=== PATIENT | female | born 1985 | race Caucasian/White ===

== ENCOUNTER 2020-09-29 19:24 | Emergency (ER) | payer SELFPAY ==
[~2020-09-29] VITALS: Ht 177.8 cm; Wt 187.7 kg
[2020-09-29 19:29] VITALS: TEMP 97.6
[2020-09-29 21:06] LABS: BASO % 0.2 % (0.0-2.0); EOS # 0.1 (0.0-0.7); EOS % 1.3 % (0-4.0); GRAN # 3.3 (1.4-6.5); GRAN % 54.3 % (42.2-75.2); HEMOGLOBIN 11.4 g/dl (12.5-16.0); LYMPH # 2.1 (1.2-3.4); LYMPH % 33.3 % (20.0-51.0); MEAN CELL VOLUME 92 fl (80.0-100.0); MEAN CORPUSCULAR HEMOGLOBIN 29 pg (27.0-31.0); MEAN CORPUSCULAR HGB CONC 31 g/dl (33.0-37.0); MEAN PLATELET VOLUME 9.4 fl (7.4-10.4); MONO # 0.7 (0.1-0.6); MONO % 10.7 % (1.7-9.3); PLATELET COUNT 317 K/mm3 (130-400); RED BLOOD COUNT 3.95 M/mm3 (4.10-5.30); REDCELL DISTRIBUTION WIDTH-CV 13.2 % (11.5-14.5)
[2020-09-29 21:08] LABS: HEMATOCRIT 36.5 % (37.0-47.0)
[2020-09-29 21:18] LABS: ALBUMIN 3.8 gm/dL (3.5-5.0); BILIRUBIN,TOTAL 0.6 mg/dL (0.0-1.0); C-REACTIVE PROTEIN 1.4 mg/dL (0.0-0.9); CALCIUM 9.2 mg/dL (8.4-10.2); CREATININE, serum 0.6 (0.52-1.25); POTASSIUM 4.3 mmol/L (3.4-5.0); TOTAL PROTEIN 7.6 gm/dL (6.4-8.2)
[2020-09-29 21:40] VITALS: BP 109/75; PULSE 81
== END 2020-09-29 21:49 | disposition home or self-care (01) ==
LOC: COL.ER 19:24
PROVIDERS: Nurse Practitioner
DX: R10.12 Left upper quadrant pain (principal); Z90.49 Acquired absence of other specified parts of digestive tract; Z98.84 Bariatric surgery status; Z32.02 Encounter for pregnancy test, result negative; Z88.1 Allergy status to other antibiotic agents; Z88.6 Allergy status to analgesic agent
CPT/HCPCS: J2270

== ENCOUNTER 2020-10-09 07:00 | Day surgery (SDC) | payer SELFPAY ==
[2020-10-09] VITALS (9 sets, daily range): BP systolic 104–119; BP diastolic 48–89; PULSE 55–86; TEMP 97.8–98
[~2020-10-09] VITALS: Ht 177.8 cm; Wt 184.6 kg
--- NOTE | 2020-10-09 10:04 | NUR ---
Pt to GI bay 3 via cart from ENDO. Pt awake and alert. Remained on cart as she will need to go to CT for scan. Pt C/O pain to right lower quadrant. Pt rates pain 8/10. Will keep pt NPO for scan. in room. Call light within reach.
--- NOTE | 2020-10-09 10:10 | NUR ---
Pt to CT scan via cart accompanied by this nurse.
--- NOTE | 2020-10-09 10:20 | NUR ---
Pt back from CT scan. Pt up to restroom with stand by assistance. Pt voids without difficulties. Pt back to room. Pt continues to rest. Rates pain 7/10. Will continue to monitor. Call light within reach.
--- NOTE | 2020-10-09 10:35 | NUR ---
Pt continues to rest. Denies needs. Call light within reach.
--- NOTE | 2020-10-09 10:50 | NUR ---
Pt states "no change" in pain. Pt rates pain 01/19. Pt calm and visits with her . Pt assisted up to restroom with stand by assistance. Pt voids without difficulties. Pt back to room. Pt made comfortable on cart. Call light within reach.
--- NOTE | 2020-10-09 11:15 | NUR ---
into see pt. Orders for Fentanyl for pain given.
--- NOTE | 2020-10-09 11:30 | NUR ---
Fentanyl 50mg IVSP given for pain per orders. Pt continues to rest. Talkative and visiting with . Call light within reach.
--- NOTE | 2020-10-09 12:00 | NUR ---
Pt reports "no change" in pain to RLQ. Pt rates pain 11/19. Pt states "I only feel a little groggy." Pt asking when she can go home. No report recieved from CT scan yet. Will continue to monitor. Call light within reach.
--- NOTE | 2020-10-09 13:00 | NUR ---
Pt continues to rest. Reports "no change" in pain. Pain continues at 6-8/10 to RLQ. Denies needs at this time. Call light within reach.
--- NOTE | 2020-10-09 13:45 | NUR ---
into speak with pt at this time.
--- NOTE | 2020-10-09 14:00 | NUR ---
Fentanyl 50mcg IVSP given. Discharge instructions reviewed. Pt voices understanding. IV site discontinued with all parts intact. Pt up to dress. Call light within reach.
--- NOTE | 2020-10-09 14:10 | NUR ---
Pt escorted to private car via wheel chair. Pt accompanied home by her boyfriend.
== END 2020-10-09 14:10 | disposition home or self-care (01) ==
LOC: SDCO 07:00
DX: K21.00 Gastro-esophageal reflux disease with esophagitis, without bleeding (principal); K62.89 Other specified diseases of anus and rectum; K29.70 Gastritis, unspecified, without bleeding; K92.0 Hematemesis; R93.3 Abnormal findings on diagnostic imaging of other parts of digestive tract; R79.82 Elevated C-reactive protein (CRP); E66.9 Obesity, unspecified; K59.00 Constipation, unspecified; Z98.84 Bariatric surgery status; Z88.1 Allergy status to other antibiotic agents; Z88.6 Allergy status to analgesic agent; Z90.49 Acquired absence of other specified parts of digestive tract; Z87.891 Personal history of nicotine dependence
CPT/HCPCS: J2405; J2704; J3010; J7120; Q9967

== ENCOUNTER 2020-11-14 19:29 | Emergency (ER) | payer MEDICAID ==
[~2020-11-14] VITALS: Ht 177.8 cm; Wt 184.5 kg
[2020-11-14 20:34] VITALS: TEMP 97.9
[2020-11-14 21:09] LABS: BASO % 0.1 % (0.0-2.0); EOS # 0.1 (0.0-0.7); EOS % 1.2 % (0-4.0); GRAN # 4.3 (1.4-6.5); GRAN % 55.6 % (42.2-75.2); HEMOGLOBIN 11.5 g/dl (12.5-16.0); LYMPH # 2.5 (1.2-3.4); LYMPH % 32.1 % (20.0-51.0); MEAN CELL VOLUME 94 fl (80.0-100.0); MEAN CORPUSCULAR HEMOGLOBIN 29 pg (27.0-31.0); MEAN CORPUSCULAR HGB CONC 31 g/dl (33.0-37.0); MEAN PLATELET VOLUME 10.1 fl (7.4-10.4); MONO # 0.8 (0.1-0.6); MONO % 10.6 % (1.7-9.3); PLATELET COUNT 268 K/mm3 (130-400); RED BLOOD COUNT 3.92 M/mm3 (4.10-5.30); REDCELL DISTRIBUTION WIDTH-CV 13.9 % (11.5-14.5)
[2020-11-14 21:11] LABS: HEMATOCRIT 36.7 % (37.0-47.0)
[2020-11-14 21:23] LABS: BILIRUBIN,TOTAL 0.9 mg/dL (0.0-1.0); CALCIUM 9.5 mg/dL (8.4-10.2); CREATININE, serum 0.73 (0.52-1.25); POTASSIUM 4.2 mmol/L (3.4-5.0); TOTAL PROTEIN 7.7 gm/dL (6.4-8.2)
[2020-11-14 23:15] VITALS: BP 120/79; PULSE 76
== END 2020-11-14 23:15 | disposition home or self-care (01) ==
LOC: COL.ER 19:29
PROVIDERS: Emergency Medicine
DX: K59.89 Other specified functional intestinal disorders (principal); E66.2 Morbid (severe) obesity with alveolar hypoventilation; Z90.49 Acquired absence of other specified parts of digestive tract; Z98.84 Bariatric surgery status
CPT/HCPCS: J1170; J2405; Q9967

== ENCOUNTER 2021-01-13 20:43 | Emergency (ER) | payer MEDICAID ==
[~2021-01-13] VITALS: Ht 177.8 cm; Wt 184.1 kg
[2021-01-13 20:52] VITALS: TEMP 98.1
[2021-01-14 00:54] LABS: MUCOUS Present /lpf; PH 5 (5-8); SQUAMOUS EPITHELIAL 20-50 /hpf; URINE APPEARANCE Turbid; URINE BACTERIA Moderate /hpf; URINE BILIRUBIN Negative (NEGATIVE); URINE BLOOD Negative (NEGATIVE); URINE COLOR Yellow; URINE GLUCOSE Negative (NEGATIVE); URINE KETONE Negative (NEGATIVE); URINE LEUKOCYTE ESTERASE Trace (NEGATIVE); URINE NITRATE Negative (NEGATIVE); URINE PROTEIN(semi-quant) 1+ (NEGATIVE); URINE RBC None Seen /hpf; URINE UROBILINOGEN >=4.0 mg/dL (NEGATIVE)
[2021-01-14 01:00] LABS: COLLECTION METHOD CLEAN CATCH
[2021-01-14 01:30] LABS: BASO % 0.1 % (0.0-2.0); EOS # 0.1 (0.0-0.7); EOS % 1.1 % (0-4.0); GRAN % 55.8 % (42.2-75.2); HEMATOCRIT 37.4 % (37.0-47.0); HEMOGLOBIN 11.7 g/dl (12.5-16.0); LYMPH # 2.3 (1.2-3.4); LYMPH % 32.2 % (20.0-51.0); MEAN CELL VOLUME 93 fl (80.0-100.0); MEAN CORPUSCULAR HEMOGLOBIN 29 pg (27.0-31.0); MEAN CORPUSCULAR HGB CONC 31 g/dl (33.0-37.0); MEAN PLATELET VOLUME 9.9 fl (7.4-10.4); MONO # 0.8 (0.1-0.6); MONO % 10.5 % (1.7-9.3); PLATELET COUNT 300 K/mm3 (130-400); RED BLOOD COUNT 4.04 M/mm3 (4.10-5.30); REDCELL DISTRIBUTION WIDTH-CV 13.4 % (11.5-14.5)
[2021-01-14 01:41] LABS: ALBUMIN 4.3 gm/dL (3.5-5.0); BILIRUBIN,TOTAL 1.5 mg/dL (0.0-1.0); CALCIUM 9.6 mg/dL (8.4-10.2); CREATININE, serum 0.71 (0.52-1.25); POTASSIUM 4.2 mmol/L (3.4-5.0); TOTAL PROTEIN 8.1 gm/dL (6.4-8.2)
[2021-01-14 05:11] VITALS: BP 110/62; PULSE 89
== END 2021-01-14 05:11 | disposition home or self-care (01) ==
LOC: COL.ER 20:43
PROVIDERS: Emergency Medicine
DX: R10.13 Epigastric pain (principal); R11.2 Nausea with vomiting, unspecified; R10.12 Left upper quadrant pain; Z98.84 Bariatric surgery status; Z90.49 Acquired absence of other specified parts of digestive tract
CPT/HCPCS: C9113; J2270; J3010; J7030; Q9967

== ENCOUNTER 2021-01-30 21:39 | Emergency (ER) | payer MEDICAID ==
[2021-01-30 23:30] LABS: BASO % 0.1 % (0.0-2.0); EOS # 0.1 (0.0-0.7); EOS % 1.3 % (0-4.0); GRAN # 4.3 (1.4-6.5); GRAN % 60.1 % (42.2-75.2); HEMATOCRIT 38.4 % (37.0-47.0); HEMOGLOBIN 12.4 g/dl (12.5-16.0); LYMPH # 1.9 (1.2-3.4); MEAN CELL VOLUME 91 fl (80.0-100.0); MEAN CORPUSCULAR HEMOGLOBIN 30 pg (27.0-31.0); MEAN CORPUSCULAR HGB CONC 32 g/dl (33.0-37.0); MEAN PLATELET VOLUME 10.1 fl (7.4-10.4); MONO # 0.8 (0.1-0.6); MONO % 11.4 % (1.7-9.3); PLATELET COUNT 322 K/mm3 (130-400); RED BLOOD COUNT 4.21 M/mm3 (4.10-5.30); REDCELL DISTRIBUTION WIDTH-CV 13.9 % (11.5-14.5)
[2021-01-30 23:43] LABS: ALBUMIN 4.2 gm/dL (3.5-5.0); BILIRUBIN,TOTAL 0.9 mg/dL (0.0-1.0); CALCIUM 9.5 mg/dL (8.4-10.2); CREATININE, serum 0.76 (0.52-1.25); POTASSIUM 4.6 mmol/L (3.4-5.0)
[2021-01-31 00:56] LABS: COLLECTION METHOD CLEAN CATCH
[2021-01-31 01:04] LABS: MUCOUS Present /lpf; PH 5 (5-8); URINE APPEARANCE Cloudy; URINE BACTERIA None Seen /hpf; URINE BILIRUBIN Negative (NEGATIVE); URINE BLOOD 3+ (NEGATIVE); URINE COLOR Yellow; URINE GLUCOSE Negative (NEGATIVE); URINE KETONE Negative (NEGATIVE); URINE LEUKOCYTE ESTERASE Negative (NEGATIVE); URINE NITRATE Negative (NEGATIVE); URINE PROTEIN(semi-quant) 2+ (NEGATIVE); URINE RBC >50 /hpf; URINE UROBILINOGEN Negative (NEGATIVE)
[2021-01-31 01:20] VITALS: BP 133/81; PULSE 91; TEMP 98.7
== END 2021-01-31 01:18 | disposition home or self-care (01) ==
LOC: COL.ER 21:39
PROVIDERS: Physician Assistant
DX: R10.9 Unspecified abdominal pain (principal); G89.29 Other chronic pain; E66.01 Morbid (severe) obesity due to excess calories; Z90.49 Acquired absence of other specified parts of digestive tract; Z98.84 Bariatric surgery status
CPT/HCPCS: J1790; J2405; J7030

== ENCOUNTER 2021-08-26 14:31 | Emergency (ER) | payer MEDICAID ==
[~2021-08-26] VITALS: Ht 177.8 cm; Wt 181.8 kg
[2021-08-26 16:03] LABS: COLLECTION METHOD CLEAN CATCH
[2021-08-26 16:10] LABS: BASO % 0.2 % (0.0-2.0); EOS # 0.1 K/mm3 (0.0-0.7); EOS % 0.6 % (0.0-4.0); GRAN # 4.6 K/mm3 (1.4-6.5); GRAN % 56.2 % (42.2-75.2); HEMATOCRIT 37.9 % (37.0-47.0); HEMOGLOBIN 12.2 g/dl (12.5-16.0); LYMPH # 2.8 K/mm3 (1.2-3.4); LYMPH % 34.4 % (20.0-51.0); MEAN CELL VOLUME 93 fl (80.0-100.0); MEAN CORPUSCULAR HEMOGLOBIN 30 pg (27-31); MEAN CORPUSCULAR HGB CONC 32 g/dl (33.0-37.0); MEAN PLATELET VOLUME 9.6 fl (7.4-10.4); MONO # 0.7 K/mm3 (0.1-0.6); MONO % 8.5 % (1.7-9.3); PLATELET COUNT 346 K/mm3 (130-400); RED BLOOD COUNT 4.08 M/mm3 (4.10-5.30); REDCELL DISTRIBUTION WIDTH-CV 13.1 % (11.5-14.5)
[2021-08-26 16:26] LABS: ALBUMIN 3.9 gm/dL (3.5-5.0); BILIRUBIN,TOTAL 1.2 mg/dL (0.2-1.2); CALCIUM 9.3 mg/dL (8.4-10.2); CREATININE, serum 0.75 mg/dL (0.57-1.11); TOTAL PROTEIN 7.9 gm/dL (6.2-8.1)
[2021-08-26 16:38] LABS: MUCOUS Present (NOT PRESENT); PH 5 (5-8); URINE APPEARANCE Hazy (CLEAR/HAZY); URINE BACTERIA Rare /hpf (NONE SEEN); URINE BILIRUBIN Negative (NEGATIVE); URINE BLOOD Negative (NEGATIVE); URINE COLOR Yellow (YELLOW); URINE GLUCOSE Negative (NEGATIVE); URINE KETONE Negative (NEGATIVE); URINE LEUKOCYTE ESTERASE Negative (NEGATIVE); URINE NITRATE Negative (NEGATIVE); URINE PROTEIN(semi-quant) Negative (NEGATIVE); URINE RBC None Seen /hpf (0-2); URINE UROBILINOGEN >=4.0 (NEGATIVE)
[2021-08-26 17:57] VITALS: BP 128/78; PULSE 86; TEMP 98.9
== END 2021-08-26 17:57 | disposition home or self-care (01) ==
LOC: COL.ER 14:31
PROVIDERS: Student in an Organized Health Care Education/Training Program
DX: R10.84 Generalized abdominal pain (principal); Z90.49 Acquired absence of other specified parts of digestive tract; Z98.84 Bariatric surgery status
CPT/HCPCS: J1170; Q9967

== ENCOUNTER 2024-01-31 17:46 | Emergency (ER) | payer MEDICAID ==
[~2024-01-31] VITALS: Ht 175.3 cm; Wt 176.6 kg
[~2024-01-31 17:46] MED LIST: NORCO 325 MG-51 TAB PO
[2024-01-31 17:54] VITALS: TEMP 98.4
[2024-01-31] MEDS ORDERED: Acetaminophen 325 MG TAB PO ONE (20:30)
[2024-01-31 20:45] VITALS: PULSE 93
== END 2024-01-31 20:44 | disposition home or self-care (01) ==
LOC: COL.ER 17:46
DX: M25.562 Pain in left knee (principal); E66.01 Morbid (severe) obesity due to excess calories; Z87.891 Personal history of nicotine dependence
CPT/HCPCS: 31289; L1830; L1846

== ENCOUNTER 2024-04-02 16:34 | Emergency (ER) | payer MEDICAID ==
[~2024-04-02] VITALS: Ht 175.3 cm; Wt 167.3 kg
[2024-04-02 16:47] VITALS: BP 127/84; TEMP 98.3
[2024-04-02 17:10] LABS: COLLECTION METHOD CLEAN CATCH
[2024-04-02 17:21] LABS: URINE APPEARANCE TURBID (CLEAR/HAZY); URINE BLOOD 3+ (NEGATIVE); URINE COLOR Dark Yellow (YELLOW); URINE GLUCOSE NEGATIVE (NEGATIVE); URINE KETONE 1+ (NEGATIVE); URINE NITRATE NEGATIVE (NEGATIVE); URINE PROTEIN(semi-quant) 1+ (NEGATIVE)
[2024-04-02 18:11] LABS: URINE RBC 20-50 /hpf (0-2); URINE WBC 20-50 /hpf (0-2)
[2024-04-02 18:12] LABS: URINE BACTERIA MANY /hpf (NONE SEEN); URINE CALCIUM OXALATE CRYSTAL PRESENT (NOT PRESENT)
[2024-04-02 19:32] VITALS: PULSE 65
== END 2024-04-02 19:32 | disposition home or self-care (01) ==
LOC: COL.ER 16:34
PROVIDERS: Family Medicine
DX: N93.8 Other specified abnormal uterine and vaginal bleeding (principal); Z87.891 Personal history of nicotine dependence